=== PATIENT | male | born 1990 | race Caucasian/White ===

== ENCOUNTER 2017-02-22 14:17 | Emergency (ER) | payer SELFPAY ==
[~2017-02-22] VITALS: Ht 177.8 cm; Wt 81.8 kg
[~2017-02-22 14:17] MED LIST: NORCO 325 MG-51 TAB PO
[2017-02-22 14:19] VITALS: BP 126/56; PULSE 98; TEMP 98.1
[2017-02-22] MEDS ORDERED: CEPHALEXIN500 M1 PO (16:14)
[2017-02-22] MEDS ORDERED: NORCO 325 MG-51 TAB PO (16:33)
== END 2017-02-22 17:58 | disposition home or self-care (01) ==
LOC: COL.ER 14:17
DX: S61.412A Laceration without foreign body of left hand, initial encounter (principal); S66.123A Laceration of flexor muscle, fascia and tendon of left middle finger at wrist and hand level, initial encounter; W26.0XXA Contact with knife, initial encounter; Y92.89 Other specified places as the place of occurrence of the external cause